=== PATIENT | female | born 1975 | race Caucasian/White ===

== ENCOUNTER 2022-12-09 01:58 | Day surgery (SDC) | payer MEDICARE, OTHER ==
[~2022-12-09 01:58] MED LIST: ALBU90OI INH; ALPR1 PO; ANTIBIOTICS; BENZ100A PO; CODGUAEL PO; PRED20 PO; WARF3 PO; WARF4 PO; XARELTO20 MG PO
[2022-12-09 15:10] VITALS: BP 92/54
[2022-12-09] MEDS ORDERED: METH40 PO (18:35)
[2022-12-09] MEDS ORDERED: XARELTO20 MG PO (18:35)
== END 2022-12-09 15:42 | disposition home or self-care (01) ==
LOC: ATC 01:58
DX: Z45.2 Encounter for adjustment and management of vascular access device (principal); M20.11 Hallux valgus (acquired), right foot; M20.12 Hallux valgus (acquired), left foot; Z88.8 Allergy status to other drugs, medicaments and biological substances; Z79.01 Long term (current) use of anticoagulants; Z79.899 Other long term (current) drug therapy
CPT/HCPCS: 99211; C1751

== ENCOUNTER 2022-12-10 11:10 | Day surgery (SDC) | payer MEDICARE, OTHER ==
[~2022-12-10] VITALS: Ht 162.6 cm; Wt 54.4 kg
[~2022-12-10 11:10] MED LIST changes: +METH40 PO
--- NOTE | 2022-12-10 12:03 | NUR ---
12/10/22 1203 [place] Hammonds PICC LINE UTILIZED FOR IV FLUIDS AND MEDICATIONS ON R ARM.
[2022-12-10 15:21] VITALS: BP 109/56
--- NOTE | 2022-12-10 15:57 | NUR ---
12/10/22 1557 SOY JACKSON PT WAS UNABLE TO GET RX FILLED AT DUE TO HX OF SABOXONE FILLED A YR AGO. RN CALLED AND SPOKE W/ PHARMACIST "JERRELL" TO INQUIRE TO WHY AND CLARIFY THAT THE PATIENT HAD BEEN ON METHADONE RX SINCE THAT AND HAD NO MEMBERSHIP TO THE [facility]ST METHADONE WAS FILLED. THE PHARMACIST REFUSED TO SPEAK WITH RN AND HUNG UP ON RN TCR 2 X'S. PT TOOK RX TO [facility] AND DR FIELD CALLED IT IN WELL.
== END 2022-12-10 15:53 | disposition home or self-care (01) ==
LOC: ORSCSDS 11:10
PROVIDERS: Podiatrist Foot & Ankle Surgery
PROC: 0QSN04Z Reposition Right Metatarsal with Internal Fixation Device, Open Approach (ICD-10-PCS; principal; 2022-12-10 12:30)
PROC: 0QSQ04Z Reposition Right Toe Phalanx with Internal Fixation Device, Open Approach (ICD-10-PCS; principal; 2022-12-10 12:30)
DX: M20.11 Hallux valgus (acquired), right foot (principal); B19.20 Unspecified viral hepatitis C without hepatic coma; Z86.718 Personal history of other venous thrombosis and embolism; Z79.01 Long term (current) use of anticoagulants; Z79.899 Other long term (current) drug therapy
CPT/HCPCS: C1713; C1769; J0690; J1100; J2001; J2371; J2405; J2704; J2795; J7120

== ENCOUNTER → 2024-02-10 | Outpatient (CLI) | payer MEDICARE, OTHER ==
[2024-02-10 14:27] LABS: Bacterial Vaginosis PCR Negative (NEGATIVE); Candida Group, PCR NOT DETECTED (NOT DETECT); Candida glabrata-krusei, PCR NOT DETECTED (NOT DETECT)
[2024-02-20 13:38] LABS: HPV HIGH RISK BY TMA Not Detected; HPV SOURCE Cervical
== END ==
LOC: LAB SHORT 08:45 → LAB 08:45
PROVIDERS: Registered Nurse
DX: Z01.419 Encounter for gynecological examination (general) (routine) without abnormal findings (principal)
CPT/HCPCS: 87481; 87624; 87661; 87801; G0123